=== PATIENT | female | born 1985 ===

== ENCOUNTER 2021-06-13 12:09 | Emergency (ER) | payer SELFPAY ==
[~2021-06-13] VITALS: Ht 152.4 cm; Wt 77.1 kg
[2021-06-13 12:27] VITALS: BP 122/85
== END 2021-06-13 13:12 | disposition left against medical advice (07) ==
LOC: ER 12:09
DX: R11.2 Nausea with vomiting, unspecified (principal); R51.9 Headache, unspecified; R19.7 Diarrhea, unspecified